=== PATIENT | male | born 1965 | race Caucasian/White ===

== ENCOUNTER 2016-08-16 12:43 | Inpatient (IN) | payer MEDICARE ==
[~2016-08-16] VITALS: Ht 185.4 cm; Wt 90.7 kg
--- NOTE | 2016-08-16 12:56 | NUR ---
assume pt care. in bed on monitor. per report pt was found altered and was witnessed having seizure like activity. gowned and placed on monitor. stable vitals at this time. awaiting md guo.
--- NOTE | 2016-08-16 13:42 | NUR ---
akash at bedside for eval.
[2016-08-16] MEDS ORDERED: IV NS 0.9% 1,000 ML BAG IV ONE (14:00)
--- NOTE | 2016-08-16 14:11 | NUR ---
pt to radiology for head ct scan via [facility].
[2016-08-16 14:12] LABS: BASOPHILS # (AUTO) 0.3 /CMM (0.0-0.2); BASOPHILS % (AUTO) 2.4 % (0.0-2.0); EOSINOPHILS % (AUTO) 0.3 % (0.0-6.0); HEMATOCRIT 51 % (39-51); HEMOGLOBIN 16.6 g/dL (13.5-17.5); LYMPHOCYTES # (AUTO) 1.3 /CMM (0.8-4.8); LYMPHOCYTES % (AUTO) 10.7 % (20.0-44.0); MEAN CORPUSCULAR HEMOGLOBIN 28 PG (26.0-33.0); MEAN CORPUSCULAR HGB CONC 33 g/dl (31.0-36.0); MEAN CORPUSCULAR VOLUME 84 fL (80-96); MONOCYTES # (AUTO) 0.9 /CMM (0.1-1.30); MONOCYTES % (AUTO) 7.6 % (2.0-12.0); NEUTROPHILS # (AUTO) 9.4 /CMM (1.8-8.9); PLATELET COUNT (AUTO) 244 /CMM (150-450); RDW COEFFICIENT OF VARIATION 13.2 (11.5-15.0); RED BLOOD CELL COUNT(AUTO) 6.01 MIL/uL (4.5-6.0); WHITE BLOOD COUNT (AUTO) 11.9 K/uL (4.3-11.0)
[2016-08-16 14:26] LABS: INR 0.97 (0.87-1.13); PROTHROMBIN TIME 10.1 SECS (9.5-12.7)
[2016-08-16 14:30] LABS: ALANINE AMINOTRANSFERASE 20 U/L (12-78); ALBUMIN 3.5 g/dL (3.4-5.0); ALKALINE PHOSPHATASE 112 U/L (46-116); ASPARTATE AMINOTRANSFERASE 43 U/L (15-37); BILIRUBIN,DIRECT 0.2 mg/dL (0.0-0.2); BILIRUBIN,TOTAL 0.7 mg/dL (0.2-1.0); CALCIUM, SERUM 9.2 mg/dL (8.5-10.1); CARBON DIOXIDE 24 mmol/L (21-32); CHLORIDE 108 mmol/L (98-107); CREATININE 1.1 mg/dL (0.6-1.3); GLUCOSE 112 mg/dL (74-106); POTASSIUM 4.5 mmol/L (3.5-5.1); SODIUM SERUM 141 mmol/L (136-145); TOTAL PROTEIN, SERUM 7.1 g/dL (6.4-8.2); UREA NITROGEN, BLOOD 16 mg/dL (7-18)
[2016-08-16 14:32] LABS: TROPONIN I < 0.017 ng/mL (0.00-0.056)
[2016-08-16] MEDS ORDERED: IV NS 0.9% 1,000 ML ONE (14:37)
[2016-08-16] MEDS ORDERED: IV SET PRIMARY 1 EA INFUS.SET MC ONE (14:37)
[2016-08-16 14:45] LABS: SERUM AMMONIA 13 umol/L (11-32)
--- NOTE | 2016-08-16 15:05 | NUR ---
pt to radiology for c spine ct scan via [facility].
--- NOTE | 2016-08-16 15:48 | NUR ---
u/s tech at bedside for rle duplex ultrasound.
[2016-08-16] MEDS ORDERED: IV SET PRIMARY PUMP SET 1 EA INFUS.SET MC ONE (16:18)
[2016-08-16] MEDS ORDERED: PIPERACILLIN /TAZOBACTAM 3.375 G in IV D5W 50 ML IV ONE (16:30)
[2016-08-16] MEDS ORDERED: VANCOMYCIN 1 GM in IV D5W 250 ML IV ONE (16:30)
[2016-08-16] MEDS ORDERED: ENOXAPARIN SODIUM 60 MG/0.6 ML DISP.SYRIN SQ ONE (17:00)
[2016-08-16] MEDS ORDERED: ENOXAPARIN SODIUM 100 MG/ML DISP.SYRIN SQ ONE (17:02)
--- NOTE | 2016-08-16 17:20 | NUR ---
REPORT GIVEN TO TERESA. PT AWAITNIG TRANSFER TO FLOOR.
--- NOTE | 2016-08-16 17:35 | NUR ---
PT WAS ADMITTED TO ROOM 316-2 WITH CELLULITIS.RLE RED, HOT AND SWOLLEN. LEFT EJ REMAINS INTACT AT THIS TIME WITH VANCOMYCIN INFUSING...V/S TAKEN=87, B/P=142/93,RR=18,RR=,S5MUB=58...REST OF ASSESSMENT= NEGATIVE...FRIEND AT BEDSIDE...PT STATES HE WANTED TO LEAVE WHILE THIS IT HELP DESK TECHNICIAN DOES ASSESSMENT. I EXPLAINED TO HIM THE RAMIFICATIONS OF LEAVING THE HOSPITAL W/O TREATMENT BUT ALSO EXPLAINED IT WAS HIS RIGHT. HE SEEMED TO UNDERSTAND AND STATED HE WOULD STAY...FRIEND AT BEDSIDE.
[2016-08-16] MEDS ORDERED: IV D5/0.45 NACL 1,000 ML IV PRN (17:54)
[2016-08-16] MEDS ORDERED: Z GUARD REMEDY 2 OZ OINT TP PRN (18:00)
[2016-08-16] MEDS ORDERED: ACETAMINOPHEN 325 MG TABLET PO PRN (18:00)
[2016-08-16] MEDS ORDERED: Folic acid 1 MG in IV D5W 50 ML IV SCH (18:00)
[2016-08-16] MEDS ORDERED: ONDANSETRON HCL/PF 4 MG/2 ML VIAL IVP PRN (18:00)
[2016-08-16] MEDS ORDERED: HYDROCODONE/APAP 5/325MG 1 EACH TABLET PO PRN (18:00)
[2016-08-16] MEDS ORDERED: MAGNESIUM HYDROXIDE 30 ML UDC PO PRN (18:00)
[2016-08-16] MEDS ORDERED: MAG HYDROX/AL HYDROX/SIMETH 30 ML UDC PO PRN (18:00)
[2016-08-16] MEDS ORDERED: Thiamine 100 MG in IV D5W 50 ML IV SCH (18:00)
[2016-08-16] MEDS ORDERED: MORPHINE SULFATE INJ 2 MG/ML DISP.SYRIN IV PRN (18:00)
[2016-08-16] MEDS ORDERED: ZOLPIDEM TARTRATE 5 MG TABLET PO PRN (18:00)
[2016-08-16] MEDS ORDERED: FEE PK DOSING 1 MIN EA MC ONE (18:31)
--- NOTE | 2016-08-16 19:25 | NUR ---
THIS NURSE UNABLE EDIE GIVE NEW MEDS @ 1800 i WAS ADMITTING A PATIENT AND WAS NOT AWARE NEW ORDERS WERE WRITTEN UNTIL I CAME BACK TO THE FLOOR AFTER MY ADMISSION...WILL ENDORSE TO ONCOMING SHIFT
[2016-08-16 19:58] VITALS: BP 129/82
[2016-08-16] MEDS ORDERED: PIPERACILLIN /TAZOBACTAM 3.375 G in IV D5W 50 ML IV SCH (23:00)
[2016-08-17] MEDS ORDERED: VANCOMYCIN 1.5 GM in IV D5W 500 ML IV SCH (05:00)
[2016-08-17] MEDS ORDERED: ENOXAPARIN SODIUM 100 MG/ML DISP.SYRIN SQ SCH (05:00)
[2016-08-17] MEDS ORDERED: PANTOPRAZOLE 40 MG TABLET.DR PO SCH (07:30)
[2016-08-17] MEDS ORDERED: MULTIVITAMINS W-MINERALS 1 TAB TABLET PO SCH (09:00)
[2016-08-17] MEDS ORDERED: NICOTINE PATCH (14MG) 14 MG PATCH.TD24 TD SCH (09:00)
== END 2016-08-16 20:07 | disposition left against medical advice (07) | DRG 602 ==
LOC: ER 12:46 → MED 17:17
PROVIDERS: ADMIT Internal Medicine; ATTEND Internal Medicine
DX: L03.115 Cellulitis of right lower limb (principal); G93.41 Metabolic encephalopathy; F17.210 Nicotine dependence, cigarettes, uncomplicated; F29 Unspecified psychosis not due to a substance or known physiological condition; F31.9 Bipolar disorder, unspecified; Z86.718 Personal history of other venous thrombosis and embolism; Z86.19 Personal history of other infectious and parasitic diseases; F19.10 Other psychoactive substance abuse, uncomplicated
CPT/HCPCS: 36415; 70450-TC; 71010-TC; 72125-TC; 80048-TC; 80076-TC; 82140-TC; 83605-TC; 84484-TC; 85025-TC; 85730-TC; 87040-TC; 87081-TC; 93971-TC; A4606; J1650; J2543; J3370; J3411; J3490; J7030; J7060; Z7610